=== PATIENT | female | born 1980 | race Caucasian/White ===

== ENCOUNTER 2019-07-07 16:13 | Emergency (ER) | payer OTHER ==
[~2019-07-07] VITALS: Ht 167.6 cm; Wt 107.5 kg
[~2019-07-07 16:13] MED LIST: DOXYCYCLINE 10100 MG PO; IMITREX100 MG PO; NAPROSYN500 MG PO; NOHOMEMEDICATIONS; NORCO 5-325 TA1 EACH PO
[2019-07-07] MEDS ORDERED: ACCUNEB SO1.25 MG/1 INH (16:28)
[2019-07-07] MEDS ORDERED: NAPROSYN500 MG PO (18:16)
[2019-07-07 18:25] VITALS: BP 110/57
== END 2019-07-07 18:26 | disposition home or self-care (01) ==
LOC: M.ERS 16:13
DX: M72.2 Plantar fascial fibromatosis (principal); J45.909 Unspecified asthma, uncomplicated; Z88.0 Allergy status to penicillin

== ENCOUNTER 2019-12-31 14:23 | Emergency (ER) | payer OTHER ==
[~2019-12-31] VITALS: Ht 167.6 cm; Wt 118.8 kg
[~2019-12-31 14:23] MED LIST changes: +ACCUNEB SO1.25 MG/1 INH
[2019-12-31 15:31] LABS: INFLUENZA A ANTIGEN Positive (Negative); INFLUENZA B ANTIGEN Negative (Negative)
[2019-12-31] MEDS ORDERED: TESSALON PERLE100 MG PO (15:59)
[2019-12-31] MEDS ORDERED: TYLENOL WITH CO1 TA1 PO (15:59)
[2019-12-31] MEDS ORDERED: TAMIFLU75 MG PO (15:59)
[2019-12-31 16:24] VITALS: BP 137/78
== END 2019-12-31 16:26 | disposition home or self-care (01) ==
LOC: M.ERS 14:23
PROVIDERS: Physician Assistant
DX: J10.1 Influenza due to other identified influenza virus with other respiratory manifestations (principal); J45.909 Unspecified asthma, uncomplicated; Z88.0 Allergy status to penicillin